=== PATIENT | male | born 1955 | race Caucasian/White ===

== ENCOUNTER → 2020-08-30 | Outpatient (CLI) | payer MEDICARE ==
--- NOTE | 2020-08-30 14:55 | RAD ---
MR#: [id number] Date of Study: 08/30/2020 Ordering Physician: ELIGIO MILLS, Referring Physician: REG ALEMAN Tech: UZAIR Ashford ARRT (R) (N) APPROVED REPORT Test Type: Exercise Stress Nurse/Tech: Chrissy Gutierrez R.N. Test Indications: abnormal EKG Cardiac History: DM, htn, high cholesterol Medications: See Electronic Medical Record Medical History: See Electronic Medical Record Resting ECG: SR w/ inverted T wave in AVL, ST elevation in leads V2,V3 Resting Heart Rate: 75 bpm Resting Blood Pressure: 159/84mmHg Pretest Chest Pain: No chest pain Nurse/Tech Notes S1S2, lungs CTA Consent: The procedure was explained to the patient in lay terms. Informed consent was witnessed. Laci eout was entered into [employer] History and Stress Test performed by UZAIR Ashford ARRT (R) (N) Stress Symptoms Fatigue POST EXERCISE Reason for Termination: Reached target heart rate Target HR: Yes Max HR: 138 bpm 106% of Maximum Predicted HR: 130 bpm Exercise duration: 8:30 min:sec, 3 Stage Exercise capacity: 10.0METs Max Blood Pressure: 209/82mmHg Blood Pressure response to exercise: Normal blood pressure response during stress. Heart Rate response to exercise: wnl Chest Pain: No. Arrhythmia: No. occaisional pvc noted ST Change: Yes. INTERPRETATION Stress EKG Conclusion: No evidence of stress induced ischemic changes Imaging Protocol IMAGE PROTOCOL: Rest Tc-99m/stress Tc-99m 1 day Rest: Stress: Viability: Radiopharm.Tc99m PlcihueqpOj59x Sestamibi Zzcj86zRt 33mCi Img Date 08/30/2020 08/30/2020 Inj-Img [id number]. 60min. Rest Admin Site:IV - Right AntecubitalAdministrator:UZAIR Ashford ARRT (R)(N) Stress Admin Site: IV - Right AntecubitalAdministrator: RT Lizette Gauthier)(N) STRESS DATA End Diast. Vol.140.0mlAv. Heart Rate78.0bpm End Syst. Vol.50.0mlCO Index BSA7.0L/min Myocardial Uspr409.0gEject. Cciznxby48.0% Stress Rates Pk. Fill Rate2.29EDV/secLVtime Pk. Fill 231.21msec Pk. Empty Rate2.88ESV/secLVtime Pk. Ooegn964.91msec 1/3 Pk. Fill1.47EDV/sec Stress Scores Regional WT1.00Summed WT12.00 Regional WM0.00Summed WM1.00 LV Perfusion There is a moderate to large sized FIXED inferior wall defect suggestive of prior infarct versus diap hragmatic attenuation artifact. Wall Motion Normal wall motion, EF 55% LV Perf. Quant 17 Seg. SSS5.00 17 Seg. SRS9.00 17 Seg. SDS1.00 Stress Defect Extent (% LAD)13.80Rest Defect Extent (% LAD)1.90Rev. Defect Extent (% LAD)13.80 Stress Defect Extent (% LCX) 0.00Rest Defect Extent (% LCX)0.00Rev. Defect Extent (% LCX)0.00 Stress Defect Extent (% RCA)10.00Rest Defect Extent (% RCA)36.70Rev. Defect Extent (% RCA)0.00 Stress Defect Extent (% RAIN)9.10Rest Defect Extent (% RAIN)15.20Rev. Defect Extent (% RAIN)5.40 Other Information Quality:Average Risk Assessment: Low-Moderate Risk Conclusion 1. No evidence of stress-induced EKG changes. 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 Large fixed inferior wall defect suggestive of prior inferior wall [place] versus diaphragmatic attenua tion artifact. 3. Normal ejection fraction, EF 55% 4. Low to moderate risk study. Signed by : Eligio Mills, Electronically Approved : 08/30/2020 14:54:52
== END ==
LOC: NM 09:54
PROVIDERS: ATTEND Internal Medicine Cardiovascular Disease
DX: R94.31 Abnormal electrocardiogram [ECG] [EKG] (principal); I10 Essential (primary) hypertension
CPT/HCPCS: 78452; 93017; A9500

== ENCOUNTER → 2020-09-09 | Outpatient (CLI) | payer MEDICARE ==
--- NOTE | 2020-09-09 09:24 | KCIC ---
MR LUMBAR SPINE [id number] Date: 09/09/2020 8:30 AM Indication: Reason: LUMBAR RADICULOPATHY / Spl. Instructions: / History: Acute LBP with BLE pain, n umbness and tingling. NKI. Comparison: Radiograph 09/08/2020. Technique: Multi-planar multi-weighted magnetic resonance imaging of the lumbar spine was performed w ithout intravenous contrast using the standard lumbar spine protocol. FINDINGS: Trace anterolisthesis at L4-5. No acute fracture. Mild to moderate multilevel degenerative disc desic cation and disc height loss. Fatty degenerative endplate changes at L5-S1. The conus terminates at a normal level. No abnormal signal is seen within the visualized distal spina l cord. No clumping of intrathecal nerve roots. No soft tissue abnormality in the visualized abdomen or pelvis. T12-L1: No disc bulge. No facet arthropathy. No significant spinal stenosis or neural foraminal narro wing. L1-L2: No disc bulge. No facet arthropathy. No significant spinal stenosis or neural foraminal narrow ing. L2-L3: Disc bulge. Mild facet arthropathy. No significant spinal stenosis. Mild bilateral neural fora adelina narrowing. L3-L4: Disc bulge. Mild facet arthropathy. No significant spinal stenosis. Mild bilateral neural fora adelina narrowing. L4-L5: Disc bulge with left paracentral protrusion. Moderate facet arthropathy with a 12 mm synovial cyst projecting into the dorsal and left dorsal epidural space. Severe left lateral recess narrowing. Moderate right lateral recess narrowing. Severe spinal canal stenosis. Mild to moderate right and mo derate left neural foraminal narrowing. L5-S1: Disc bulge with annular tear and far lateral protrusions. Mild facet arthropathy. No spinal st enosis. Mild bilateral neural foraminal narrowing. IMPRESSION: Severe spinal canal stenosis at L4-5 due to degenerative changes combined with a prominent synovial c yst projecting into the epidural space. Electronically signed by: Thuan Shea MD (09/09/2020 9:22 AM) [id number]
== END ==
LOC: KCIC MRI 08:16
PROVIDERS: ATTEND Specialist
DX: M47.27 Other spondylosis with radiculopathy, lumbosacral region (principal); M48.061 Spinal stenosis, lumbar region without neurogenic claudication; M71.38 Other bursal cyst, other site
CPT/HCPCS: 72148

== ENCOUNTER → 2020-10-07 | Outpatient (CLI) | payer MEDICARE ==
--- NOTE | 2020-10-07 18:06 | CARD ---
MR#: [id number] Date of Study: 10/07/2020 Ordering Physician: ELIGIO COYNE, Referring Physician: ELIGIO COYNE, Tech: Daniela Cloud [facility] APPROVED REPORT EXAM: Two-dimensional and M-mode echocardiogram with Doppler and color Doppler. Other Information Quality : GoodHR: 61bpm Rhythm : NSR INDICATION RISK FACTORS Hypertension Hyperlipidemia Diabetes 2D DIMENSIONS RVDd3.5 (2.9-3.5cm)Left Atrium(2D)3.4 (1.6-4.0cm) IVSd1.3 (0.7-1.1cm)Aortic Root(2D)3.9 (2.0-3.7cm) LVDd4.8 (3.9-5.9cm)LVOT Diameter2.7 (1.8-2.4cm) PWd1.2 (0.7-1.1cm)IVSs1.6 (0.8-1.2cm) LVDs3.2 (2.5-4.0cm)FS (%) 32.3 % PWs1.7 (0.8-1.2cm)SV63.5 ml Aortic Valve AoV Peak Titus.127.1cm/sAoV VTI22.7cm AO Peak GR.6.5mmHgLVOT Peak Titus.110.5cm/s LVOT VTI 22.92cmAO Mean GR.3mmHg REINA (VMAX)3.22un6EAB (VTI)5.66cm2 Mitral Valve MV E Caepldma26.0cm/sMV DECEL [id number] MV A Kusxrtik69.1cm/sMV NEX28jn E/A Ratio0.8MVA (PHT)4.04cm2 TDI E/Lateral E'7.1E/Medial E'9.2 Pulmonary Valve PV Peak Krflcrzv147.4cm/sPV Peak Grad.5mmHg Tricuspid Valve TR P. Muipyxua273lu/sTR Peak Gr.20mmHg Pulmonary Vein S1 Rlvwsjts44.4cm/sD2 Qvijyozo31.0cm/s PVa [id number] LEFT VENTRICLE The left ventricle is normal size. There is borderline to mild concentric left ventricular hypertroph y. The left ventricular systolic function is normal and the ejection fraction is within normal range. Estimated ejection fraction 55-60%. There is normal LV segmental wall motion. The left ventricular diastolic function and filling is normal for age. RIGHT VENTRICLE The right ventricle is normal size. There is normal right ventricular wall thickness. The right ventr icular systolic function is normal. ATRIA The left atrium size is normal. The right atrium size is normal. The interatrial septum is intact wit h no evidence for an atrial septal defect or patent foramen ovale as noted on 2-D or Doppler imaging. AORTIC VALVE The aortic valve is normal in structure and function. Doppler and Color Flow revealed trace aortic re gurgitation. There is no significant aortic valvular stenosis. MITRAL VALVE The mitral valve is normal in structure and function. There is no evidence of mitral valve prolapse. There is no mitral valve stenosis. Doppler and Color-flow revealed trace mitral regurgitation. TRICUSPID VALVE The tricuspid valve is normal in structure and function. Doppler and Color Flow revealed trace tricus pid regurgitation. Estimated PAP 22 mmHg. There is no tricuspid valve stenosis. PULMONIC VALVE The pulmonary valve is normal in structure and function. Doppler and Color Flow revealed no pulmonic valvular regurgitation. GREAT VESSELS The aortic root is normal in size. The ascending aorta is normal in size. The pulmonary artery is nor mal. The IVC is normal in size and collapses >50% with inspiration. PERICARDIAL EFFUSION There is no evidence of significant pericardial effusion. Critical Notification Critical Value: No <Conclusion> The left ventricle is normal size. The left ventricular systolic function is normal and the ejection fraction is within normal range. Estimated ejection fraction 55-60%. There is borderline to mild concentric left ventricular hypertrophy. Doppler and Color Flow revealed trace aortic regurgitation. There is no significant aortic valvular stenosis. Doppler and Color-flow revealed trace mitral regurgitation. Doppler and Color Flow revealed trace tricuspid regurgitation. Estimated PAP 22 mmHg. Signed by : Bello Bright MD Electronically Approved : 10/07/2020 18:06:06
== END ==
LOC: ECHO 08:41
PROVIDERS: ATTEND Internal Medicine Cardiovascular Disease
DX: R94.31 Abnormal electrocardiogram [ECG] [EKG] (principal)
CPT/HCPCS: 93306